=== PATIENT | female | born 1975 | race Two or more races ===

== ENCOUNTER 2024-10-29 16:53 | Emergency (ER) | payer OTHER ==
[2024-10-29 17:22] LABS: #Basophils 0.06 10x3/uL (0.0-0.2); %Basophils 0.8 % (0.0-1.0); %Eosinophils 0.8 % (0.0-10.0); %Lymphocytes 34.3 % (21.0-51.0); %Monocytes 10.2 % (0.0-10.0); %Neutrophils 53.6 % (42.0-75.0); Hematocrit 35.7 % (36.0-47.0); Hemoglobin 12.4 g/dL (12.0-16.0); Mean Corpuscular HGB CONC 34.7 g/dL (32.0-36.0); Mean Corpuscular Hemoglobin 35.1 pg (27.0-31.0); Mean Corpuscular Volume 101.1 fL (78.0-98.0); Mean Platelet Volume 8.4 fL (7.4-10.4); Platelet Count 399 10x3/uL (130-400); RBC Distribution Width 12.4 % (11.5-14.5); Red Blood Cell (RBC) Count 3.53 mill/uL (4.20-5.40)
[2024-10-29] MEDS ORDERED: Morphine 4 MG/ML VIAL ONE (17:27)
[2024-10-29] MEDS ORDERED: Ondansetron PF 4 MG/2 ML Vial ONE (17:27)
[2024-10-29] MEDS ORDERED: Acetaminophen 500 MG TAB ONE (17:27)
[2024-10-29 17:50] LABS: Troponin I Less than 0.010 ng/mL (< 0.028)
[2024-10-29 17:55] LABS: ALT (SGPT) 12 U/L (8-55); AST (SGOT) 18 U/L (5-34); Acetaminophen Less than 10 mcg/mL (Less than 10); Albumin 3.9 g/dL (3.5-5.0); Alcohol Less than 10.0 mg/dL (Less than 10); Alkaline Phosphatase 44 U/L (40-110); Anion Gap 14 mmol/L (10-20); BUN (Urea Nitrogen) 9 mg/dL (7.0-18.7); Bilirubin, Total 0.2 mg/dL (0.2-1.2); Calc. Creatinine Clearance 0 mL/min (70-130); Calcium 8.7 mg/dL (7.8-10.44); Carbon Dioxide 22 mmol/L (22-29); Chloride 98 mmol/L (98-107); Estimated GFR 102; Globulin 2.9 g/dL (2.4-3.5); Glucose 97 mg/dL (70-105); Potassium 3.9 mmol/L (3.5-5.1); Protein, Total 6.8 g/dL (6.0-8.3); Salicylate Less than 8.0 mg/dL (Less than 8.0); Sodium 130 mmol/L (136-145)
[2024-10-29] MEDS ORDERED: Ketorolac Tromethamine 30 MG (1 mL) VIAL ONE (19:27)
== END 2024-10-29 19:35 ==
LOC: EDBD 16:53 → ERS 16:53
DX: S09.90XA Unspecified injury of head, initial encounter (principal); M79.671 Pain in right foot; M25.511 Pain in right shoulder; F31.9 Bipolar disorder, unspecified; W19.XXXA Unspecified fall, initial encounter; Z79.82 Long term (current) use of aspirin; Z79.899 Other long term (current) drug therapy
CPT/HCPCS: 70450; 71045; 72125; 73030; 73630; 80053; 80307; 83880; 84484; 85025; 93005; J1885; J2272; J2405; 36415; 96374; 96375